=== PATIENT | female | born 1990 | race African-American/Black ===

== ENCOUNTER 2018-06-19 14:48 | Inpatient (IN) | payer OTHER ==
[2018-06-19 15:35] VITALS: BMI 28.1
--- NOTE | 2018-06-19 18:26 | PN ---
[facility] Progress Note Note: Psychiatric nurse practitioner note: Printed Circuit Board Designer seen in [facility] for assessment of suicidality. Patient presents with slow, mildly slurred speech, slightly drowsy and with a slightly unsteady gait. Patient is oriented X3 and is able to have a conversation with medical writer. She admits to using illegal substances before arriving to [facility]. Blood Alcohol level is 0. Patient is a 27 year old female (reports having multiple wives), without children, unemployed, homeless, and is supported by [facility]. Patient had a suicide attempt on 06/13 (was going to jump on the train track but was stopped by a pedestrian) after [facility] initially refused to accept her to the detox program. After her suicide attempt she was admitted to [facility] psychiatric unit from 06/13-06/17. As per paper work from [facility] she was prescribed risperdal 1mg BID and is provided outpatient psychiatric care by the [facility] intensive treatment team. Her psychiatrist is Dr. Ordoñez # [phone]. Patient self reports diagnosis of schizophrenia and bipolar disorder. She reports current auditory hallucinations of voices telling her good things. States the voices are mild and taking medications help keep the voices under control. Patient reports h/o multiple suicide attempts via cutting self. She denies suicidal and homicidal ideation and therefore is stable for admission to detox/rehab. States she is motivated to complete detox/rehab. Patient agreeable to restarting risperdal 1mg BID. Patient has yet to be admitted and therefore medical writer is unable to order risperdal 1mg BID. Psychiatric consult to follow with the intention to resume patient's risperdal 1mg BID.
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
[2018-06-19] MEDS ORDERED: MENTHOL/PHENOL 1 EACH UD MM PRN (19:32)
[2018-06-19] MEDS ORDERED: NICOTINE POLACRILEX 2 MG GUM BC PRN (19:32)
[2018-06-19] MEDS ORDERED: guaiFENesin/D-METHORPHAN HB 10 ML UNIT-DOSE CUPS PO PRN (19:32)
[2018-06-19] MEDS ORDERED: LOPERAMIDE HCL 2 MG CAPSULE PO PRN (19:32)
[2018-06-19] MEDS ORDERED: hydrOXYzine PAMOATE 50 MG CAPSULE (FP) PO PRN (19:32)
[2018-06-19] MEDS ORDERED: IBUPROFEN 400 MG TABLET (FP) PO PRN (19:32)
[2018-06-19] MEDS ORDERED: P-EPHED 60MG/TRIPROLIDI 2.5MG TABLET PO PRN (19:32)
[2018-06-19] MEDS ORDERED: MAGNESIUM CITRATE 300 ML BOTTLE PO PRN (19:32)
[2018-06-19] MEDS ORDERED: MAG HYDROX/AL HYDROX/SIMETH 30 ML UNIT-DOSE CUP PO PRN (19:32)
[2018-06-19] MEDS ORDERED: ACETAMINOPHEN 325 MG TABLET (FP) PO PRN (19:32)
[2018-06-19] MEDS ORDERED: MAGNESIUM HYDROX 2400MG/30ML ORAL SUSPENSION 30 ML CUP PO PRN (19:32)
[2018-06-19] MEDS ORDERED: TUBERCULIN PPD 5 TU/0.1ML VIAL ID ONE (20:37)
[2018-06-19] MEDS ORDERED: THIAMINE HCL 100 MG TABLET (FP) PO SCH (22:00)
[2018-06-19] MEDS ORDERED: MELATONIN 5 MG TABLETS PO PRN (22:00)
--- NOTE | 2018-06-19 22:39 | PN ---
[facility] Progress Note Note: Psychiatry Attending's on-call note : Called to enter order for risperdal for this patient. New admission to [address] 27 y/o AA female with schizophrenia. Directly sent from [facility]. Spoke to patient via telephone. Not able to provide information. Slurred, slow speech.Low toned voice. Nurse reports patient as unsteady,drowsy. Noted glucose = 314 Recommendations : Constant observation (1:1) for medical reasons. Neuro checks. Contact medical RESEARCH DIETITIAN / MD air traffic control manager for re-assessment. Order for risperdal : deferred. Discussed with nurse on duty.
[2018-06-20 02:57] LABS: URINE APPEARANCE CLEAR; URINE BILIRUBIN NEGATIVE (<2.0 mg/dL); URINE COLOR YELLOW; URINE GLUCOSE (UA) NEGATIVE (NEGATIVE); URINE KETONE NEGATIVE (NEGATIVE); URINE LEUK ESTERASE NEGATIVE (NEGATIVE); URINE NITRITE NEGATIVE (NEGATIVE); URINE PROTEIN NEGATIVE (NEGATIVE); URINE UROBILINOGEN 4.0 E.U/dl mg/dL (0.2-1.0)
--- NOTE | 2018-06-20 07:06 | PN ---
[facility] Progress Note Note: ASKED TO SEE CLIENT FOR OVERSEDATION. CLIENT SEEN BY PROVIDER LYING IN BED INCONTINENT OF URINE. LINEN AND CLOTHING SOAKED OF URINE. AROUSEABLE WHEN NAME WAS CALLED. CLIENT IS AWAKE AND ALERT X3 PERRLA SEATED UP AT BED SIDE; ASKING TO USE THE BATHROOM OOB AMBULATING SELF W/O DIFFICULTY; SLIGHT UNSTEADY GAIT IN THE BEGINNING SHE IS NOW IN THE SHOWER WITH FEMALE PAROLE DIRECTOR SUPERVISING. CLIENT IS PRESENTLY ON 1:1 FOR SAFETY BY PSYCH ORDERS. C/W REHAB P/ PSYCH REEVAL. MAINTAIN SAFETY VS 106/74 P-65- T- 97.4- R16
[2018-06-20 09:37] VITALS: BP 113/64; PULSE 97; TEMP 97.8
[2018-06-20] MEDS ORDERED: NICOTINE 21 MG/24 HOURS TOPICAL PATCH TD SCH (10:00)
[2018-06-20] MEDS ORDERED: PRENATAL VITAMINS W/ FOLIC ACID TABLET (FP) PO SCH (10:00)
[2018-06-20 10:43] LABS: HEMATOCRIT 37.5 % (32.4-45.2); MCH 27.8 pg (25.7-33.7); MEAN CELL VOLUME 86.9 fl (80-96); MEAN PLT VOLUME 7.3 fl (7.5-11.1); PLATELET COUNT 258 K/MM3 (134-434); RBC 4.32 M/mm3 (3.60-5.2); WHITE BLOOD COUNT 7.6 K/mm3 (4.0-10.0)
[2018-06-20 11:05] LABS: ALBUMIN 3.1 g/dl (3.4-5.0); ALK PHOS 73 U/L (45-117); ANION GAP 7 MMOL/L (8-16); BILIRUBIN,TOTAL 0.4 mg/dL (0.2-1); BLOOD UREA NITROGEN 13 mg/dL (7-18); CALCIUM 8.2 mg/dL (8.5-10.1); CHLORIDE 107 mmol/L (98-107); CO2 26 mmol/L (21-32); CREATININE 0.8 mg/dL (0.55-1.3); GLUCOSE,RANDOM 78 mg/dL (74-106); POTASSIUM 4.4 mmol/L (3.5-5.1); SGOT/AST 19 U/L (15-37); SGPT/ALT 32 U/L (13-61); SODIUM 140 mmol/L (136-145); TOT PROT 6.4 g/dl (6.4-8.2)
[2018-06-20] MEDS ORDERED: PNEUMOC 13-VAL CONJ-DIP CRM/PF 0.5 ML DISP.SYRIN IM ONE (12:00)
[2018-06-20] MEDS ORDERED: PNEUMOCOCCAL 23 VACCINE 0.5 ML VIAL IM ONE (12:00)
[2018-06-20] MEDS ORDERED: FLU VACCINE QUAD 60 MCG/0.5 ML (MDV 18-19) IM ONE (12:00)
--- NOTE | 2018-06-20 12:21 | PN ---
[facility] Progress Note Note: Requested to see patient in order to resume her psychotropic medication( Risperdal 1 mg po BID). Dr Roblero and NICHOLE Johnson's notes seen and appreciated. Patient has history of Schizophrenia. psychiatric hospitalizations and suicidal atempts, She was discharged from [facility] where she was from to 06/17/18 for suicidal attempt. She was referred to this facility for inpatient rehab. Patient was seen by NICHOLE Johnson yesterday at [facility](see note) but he could not order her medication since patient was not admitted yet and did not have an electronic chart. After admission of patient to Inpt rehab(3E) Dr Roblero who is the publication editor psychiatrist was called to order her medication( Risperdal 1 mg po BID). Dr Roblero talked to patient on the phone and found her medically unstable. She has slurred, slow speech and was described by nursing staff with drowsiness and unsteady gait. He recommended that patient be on 1:1 for medical reason pending medical assessment before psychotropic could be ordered. Patient was seen by Dr Lassiter who medically cleared patient. Risperdal 1 mg po BID is ordered by lead technical writer
[2018-06-20] MEDS ORDERED: risperiDONE 1 MG TABLET (FP) PO SCH (12:45)
--- NOTE | 2018-06-20 12:46 | PN ---
[facility] Progress Note Note: alert,oriented x 3 no complaint able to get up to go to bathroom and have bgm check by Nurse Vital Signs Temperature 97.8 F 06/20/18 09:36 Pulse Rate 97 H 06/20/18 09:36 Respiratory Rate 17 06/20/18 09:36 Blood Pressure 113/64 06/20/18 09:36 O2 Sat by Pulse Oximetry (%) medically stable discussed with dr ryder psychiatrst who also present in the unit
[2018-06-20] MEDS ORDERED: TUBERCULIN PPD 5 TU/0.1ML VIAL ID ONE (14:45)
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
--- NOTE | 2018-06-20 23:55 | PN ---
[facility] Progress Note Note: Psychiatry Attending's note : Came to [facility] to evaluate the patient. Ms Wood is not found on the unit. According to nurse on duty, the patient escalated into overt aggression + suicidal ideation. Jonathon informs this policy writer sales that the patient got transferred to the psychiatric emergency room at [facility].
== END 2018-06-20 17:35 | disposition short-term general hospital (02) | DRG 897 ==
LOC: YASAS 14:48 → Y3E 19:28
PROVIDERS: ADMIT Psychiatry & Neurology Psychiatry; ATTEND Psychiatry & Neurology Psychiatry
PROC: HZ2ZZZZ Detoxification Services for Substance Abuse Treatment (ICD-10-PCS; principal; 2018-06-19)
DX: F10.20 Alcohol dependence, uncomplicated (principal); F14.20 Cocaine dependence, uncomplicated; F12.20 Cannabis dependence, uncomplicated; F17.210 Nicotine dependence, cigarettes, uncomplicated; F19.24 Other psychoactive substance dependence with psychoactive substance-induced mood disorder; F31.9 Bipolar disorder, unspecified; F20.9 Schizophrenia, unspecified; F90.9 Attention-deficit hyperactivity disorder, unspecified type; F39 Unspecified mood [affective] disorder; F60.89 Other specific personality disorders; I10 Essential (primary) hypertension; E11.9 Type 2 diabetes mellitus without complications; Z79.84 Long term (current) use of oral hypoglycemic drugs; Z91.5 Personal history of self-harm; Z59.0 Homelessness; Z91.19 Patient's noncompliance with other medical treatment and regimen
CPT/HCPCS: 36415; 80053; 81003; 82962; 85027; 86593; 90688; 90732; G0008; G0009